=== PATIENT | female | born 1945 | race Caucasian/White ===

== ENCOUNTER 2018-03-02 22:06 | Emergency (ER) | payer MEDICARE, OTHER ==
[~2018-03-02] VITALS: Ht 165.1 cm; Wt 74.4 kg
[2018-03-02 22:13] VITALS: BP 156/82
[2018-03-02] MEDS ORDERED: LET SOLN TOPICAL 8 ML UDC TP ONE (22:15)
[2018-03-02] MEDS ORDERED: PHENYLEPHRINE 0.5% NASAL SPRAY 15 ML BOTTLE NS ONE (22:16)
[2018-03-02] MEDS ORDERED: LIDOCAINE VISCOUS 2% UD 15 ML UDC ONE (22:38)
[2018-03-02] MEDS ORDERED: SILVER NITRATE APPLICATOR 1 EA BOX ONE (22:38)
--- NOTE | 2018-03-02 22:58 | NUR ---
PT REFUSED IV AND BLOOD WORK. MADE AWARE
[2018-03-02] MEDS: IV NS 0.9% 500 ML BAG IV ONE (23:22)
[2018-03-02] MEDS: LET SOLN TOPICAL 8 ML UDC TP ONE (23:23)
[2018-03-02] MEDS: SILVER NITRATE APPLICATOR 1 EA BOX TOP ONE (23:23)
[2018-03-02] MEDS: PHENYLEPHRINE HCL NASAL SPRAY 15 ML BOTTLE NS ONE (23:27)
== END 2018-03-02 23:29 | disposition home or self-care (01) ==
LOC: ER 22:07
DX: R04.0 Epistaxis (principal); I10 Essential (primary) hypertension; K21.9 Gastro-esophageal reflux disease without esophagitis; E11.9 Type 2 diabetes mellitus without complications
CPT/HCPCS: 30901; 99284; A4606; Z7610

== ENCOUNTER 2019-11-04 23:55 | Inpatient (IN) | payer MEDICARE, OTHER ==
[~2019-11-04] VITALS: Ht 157.5 cm; Wt 91.6 kg
[2019-11-05] VITALS (7 sets, daily range): BP systolic 117–138; BP diastolic 50–61
--- NOTE | 2019-11-05 00:05 | NUR ---
AT BEDSIDE FOR EVAL.
[2019-11-05] MEDS ORDERED: NITROGLYCERIN 0.4 MG/TAB BOTTLE ONE (00:15)
[2019-11-05] MEDS ORDERED: ASPIRIN 325 MG TABLET ONE (00:16)
--- NOTE | 2019-11-05 00:20 | NUR ---
ROXY FROM HOME TO ER BED 3. AAOX4. NOT IN RESP DISTRESS. AMBULATORY. C/O MID STERNAL CHEST PAIN RADIATING TO UPPER BACK SHARP SINCE 1900. PT REPORTS THAT SHE FEELS SOB WITH O2 SAT 95% PLACED ON 02 VIA NC AT 2LPM. PT WAS GIVEN A SPRAY OF NITRO BY EMS BY UNRELIEVED. PT PLACED ON MONITOR. MD WAS AT BEDSIDE FOR EVAL. ORDERS RECEIVED, NOTED AND CARRIED OUT. IV LINE OBTAINED ON THE R AC 20G. BLOOD DRAWN AND GIVEN TO SILVICULTURIST AT BEDSIDE. EKG DONE BY EMT. WILL CONTINUE TO MONITOR
[2019-11-05 00:24] LABS: BASOPHILS % (AUTO) 0.7 % (0.0-2.0); EOSINOPHILS % (AUTO) 1.1 % (0.0-6.0); HEMATOCRIT 37 % (33-45); HEMOGLOBIN 12.2 g/dL (11.5-14.8); LYMPHOCYTES # (AUTO) 0.9 /CMM (0.8-4.8); LYMPHOCYTES % (AUTO) 24.9 % (20.0-44.0); MEAN CORPUSCULAR HGB CONC 33 g/dl (31.0-36.0); MEAN CORPUSCULAR VOLUME 90 fL (82-100); MONOCYTES # (AUTO) 0.3 /CMM (0.1-1.30); MONOCYTES % (AUTO) 9.9 % (2.0-12.0); NEUTROPHILS # (AUTO) 2.2 /CMM (1.8-8.9); NEUTROPHILS % (AUTO) 63.4 % (43.0-81.0); PLATELET COUNT (AUTO) 55 /CMM (150-450); RED BLOOD CELL COUNT(AUTO) 4.15 MIL/uL (4.0-5.2); WHITE BLOOD COUNT (AUTO) 3.5 K/uL (4.3-11.0)
[2019-11-05] MEDS ORDERED: NITROGLYCERIN 0.4 MG/TAB BOTTLE SL ONE (00:30)
[2019-11-05] MEDS ORDERED: ASPIRIN 325 MG TABLET PO ONE (00:30)
--- NOTE | 2019-11-05 00:34 | NUR ---
SPOKE TO PTS . Elida
--- NOTE | 2019-11-05 00:35 | NUR ---
XRAY AT BEDSIDE
[2019-11-05 00:40] LABS: CALCIUM, SERUM 9.4 mg/dL (8.5-10.1); CARBON DIOXIDE 28 mmol/L (21-32); CHLORIDE 104 mmol/L (98-107); CREATININE 0.7 mg/dL (0.6-1.3); GLUCOSE 139 mg/dL (74-106); POTASSIUM 4.1 mmol/L (3.5-5.1); SODIUM SERUM 142 mmol/L (136-145); UREA NITROGEN, BLOOD 11 mg/dL (7-18)
[2019-11-05 00:58] LABS: LYMPHOCYTES % (MANUAL) 22 % (16-48); MONOCYTES % (MANUAL) 7 % (0-11.0); NEUTROPHILS % (MANUAL) 71 (42-76)
[2019-11-05] MEDS ORDERED: ENOXAPARIN SODIUM 80 MG/0.8 ML DISP.SYRIN SQ ONE (01:00)
[2019-11-05] MEDS ORDERED: ENOXAPARIN SODIUM 30 MG/0.3 ML DISP.SYRIN ONE (01:11)
[2019-11-05] MEDS ORDERED: ENOXAPARIN SODIUM 60 MG/0.6 ML DISP.SYRIN SQ ONE (01:12)
[2019-11-05] MEDS ORDERED: CEFTRIAXONE 1GM BAG (ER ONLY) 1 GM/50 ML PIGGYBACK IV ONE (01:30)
[2019-11-05] MEDS ORDERED: AZITHROMYCIN 250 MG TABLET PO ONE (01:30)
[2019-11-05] MEDS ORDERED: CEFTRIAXONE 1GM BAG (ER ONLY) 50 ML IV ONE (01:58)
[2019-11-05] MEDS ORDERED: AZITHROMYCIN 250 MG TABLET ONE (01:58)
--- NOTE | 2019-11-05 02:23 | NUR ---
ZOE FROM TRANSLATION LINE TO ADVISE THAT THERE IS STILL NO [facility] DIRECTOR CAREER SERVICES AVAILABLE. WILL CALL BACK FOR UPDATE
--- NOTE | 2019-11-05 02:56 | NUR ---
REPORT GIVEN TO MATTHIEU MAYO FOR LIZZY. PT GOING TO 103 TELE
--- NOTE | 2019-11-05 04:18 | NUR ---
LAURA MALDONADO PAGED PER DEEDEE ARSHAD ORDER.
--- NOTE | 2019-11-05 04:53 | NUR ---
ER MD SPOKE TALKING TO LAURA MALDONADO REGARDING PT ADMISSION.
[2019-11-05] MEDS ORDERED: ONDANSETRON HCL/PF 4 MG/2 ML VIAL IVP PRN (05:00)
--- NOTE | 2019-11-05 05:05 | NUR ---
CARBON SEQUESTRATION PLANT ENGINEER NOTES RECEIVED PT VIA KAVIN. AOX4. NAD. C/O CHEST PAIN SAYS RADIATING TO HER BACK. CONTINENT OF BOWEL AND URINE. AMBULATORY. NO SKIN PROBLEMS. RAC SALINE LOCK 20G. ADMISSION RECORDING DONE. PT HAS EXPRESSED THE NEED TO REST AND SLEEP. BED LOCKED AND LOWEST POSITION. ALL SAFETY MEASURES IN PLACE. WILL CONT TO MONITOR.
--- NOTE | 2019-11-05 05:10 | NUR ---
PT TRANSPORTED PER [facility]S PROTOCOL.
[2019-11-05 06:09] LABS: ABG BASE EXCESS -0.6 mmol/L; ABG OXYGEN SATURATION 97.6 % (92.0-98.5); ABG PCO2 35.8 mmHg (35.0-45.0); ABG PH 7.431 (7.350-7.450); ABG PO2 108.4 mmHg (75.0-100.0); COHb 0.3 % (0.5-1.5); MetHb 0.6 % (0.0-1.5); O2Hb 96.7 % (94.0-97.0); SITE, ABG Left Radial; VENT MODE, BG 2 LNC
[2019-11-05 06:33] LABS: FERRITIN 62 ng/mL (8-388)
[2019-11-05 06:37] LABS: C-REACTIVE PROTEIN 1.8 mg/dL (0.0-0.9)
--- NOTE | 2019-11-05 06:48 | NUR ---
DEVELOPER ARCHITECT NOTES LAB CALLED WITH CRITICAL VALUE OF LACTIC ACID 2.8. LAURA BELLE FISH MACHINE FEEDER CONTACTED, NEW ORDER FOR 500ML NS 0.9% BOLUS RECEIVED. ORDER NOTED AND CARRIED OUT. WILL ENDORSE TO ONCOMING RN
[2019-11-05 06:54] LABS: ALANINE AMINOTRANSFERASE 19 U/L (12-78); ALBUMIN 3.8 g/dL (3.4-5.0); ALKALINE PHOSPHATASE 60 U/L (46-116); ASPARTATE AMINOTRANSFERASE 22 U/L (15-37); BILIRUBIN,DIRECT 0.2 mg/dL (0.0-0.2); BILIRUBIN,TOTAL 1.2 mg/dL (0.2-1.0); TOTAL PROTEIN, SERUM 7.2 g/dL (6.4-8.2)
[2019-11-05] MEDS ORDERED: IV NS 0.9% 500 ML IV ONE (07:00)
--- NOTE | 2019-11-05 07:30 | NUR ---
MS RN OPENING NOTES RECEIVED PATIENT IN BED, AWAKE, A/O X3. PATIENT ON OXYGEN THERAPY ON 2 LPM VIA NASAL CANNULA. PATIENT BREATHING EVEN AND UNLABORED, NO SIGNS OF SOB AT THIS TIME. RAC GAUGE # 20 PRESENT INTACT AND INFUSING BOLUS 0.9 NS. NO PAIN REPORTED BY PATIENT. SAFETY PRECAUTIONS IN PLACE; BED IN LOW POSITION AND LOCKED, RAILS UP X2, CALL LIGHT WITHIN REACH. WILL CONTINUE TO MONITOR PATIENT.
[2019-11-05] MEDS ORDERED: LIDO30AD10 TP (09:48)
[2019-11-05] MEDS ORDERED: ESOM40CA PO (09:48)
[2019-11-05] MEDS ORDERED: CYCL30DR EACHEYE (09:48)
[2019-11-05] MEDS ORDERED: CARB-93 PO (09:48)
[2019-11-05] MEDS ORDERED: GLIM2TAB31 PO (09:48)
[2019-11-05] MEDS ORDERED: ERGO500014 PO (09:48)
[2019-11-05] MEDS ORDERED: SITA1TAB2 PO (09:48)
[2019-11-05] MEDS ORDERED: LOSA50TA39 PO (09:48)
[2019-11-05] MEDS: PANTOPRAZOLE 40 MG TABLET.DR PO SCH (11:36)
[2019-11-05] MEDS ORDERED: IV NS 0.9% 250 ML IV ONE (12:04)
[2019-11-05] MEDS ORDERED: IOHEXOL-350 100 ML VIAL IV ONE (12:04)
[2019-11-05] MEDS ORDERED: CT SWABBABLE VALVE TRANS SET 1 EA INFUS.SET MC ONE (12:05)
[2019-11-05] MEDS: CARBIDOPA/LEVODOPA 25/100 MG 1 UDTAB PO SCH ×3 (14:15→21:03)
--- NOTE | 2019-11-05 18:48 | NUR ---
MS RN CLOSING NOTES PATIENT IN BED, ASLEEP, A/O X3. PATIENT ON OXYGEN THERAPY ON 2 LPM VIA NASAL CANNULA. PATIENT BREATHING EVEN AND UNLABORED, NO SIGNS OF SOB AT THIS TIME. RAC GAUGE # 20 PRESENT INTACT; FLUSHING WELL. NO PAIN REPORTED BY PATIENT. ALL NEEDS ATTENDED TO THROUGHOUT THE DAY. SAFETY PRECAUTIONS IN PLACE; BED IN LOW POSITION AND LOCKED, RAILS UP X2, CALL LIGHT WITHIN REACH. WILL ENDORSE TO GLYCERINE PLANT OPERATOR NURSE.
--- NOTE | 2019-11-05 19:30 | NUR ---
WELDER ASSISTANT NOTE: PATIENT RESTING IN BED, NO ACUTE DISTRESS NOTED. BREATHING EVEN AND UNLABORED, NO SOB NOTED. IV TO RAC AND LEFT HAND IN PLACE. ISOLATION PRECAUTIONS OBSERVED. BED LOCKED AND IN LOWEST POSITION, CALL LIGHT IN REACH. WILL CONTINUE TO MONITOR. Addendum: 11/05/19 at 2050 by OTILIO ARIAS RN TELE READING SR 78
[2019-11-06] VITALS (9 sets, daily range): BP systolic 107–126; BP diastolic 45–69
--- NOTE | 2019-11-06 03:05 | NUR ---
GINNER HELPER NOTE: PATIENT SLEEPING IN BED, NO ACUTE DISTRESS NOTED. BREATHING EVEN AND UNLABORED, NO SOB NOTED. IV TO RAC AND LEFT HAND IN PLACE. ISOLATION PRECAUTIONS OBSERVED. BED LOCKED AND IN LOWEST POSITION, CALL LIGHT IN REACH. WILL CONTINUE TO MONITOR.
--- NOTE | 2019-11-06 06:05 | NUR ---
TAIL RIPPER NOTE: PATIENT RESTING IN BED, NO ACUTE DISTRESS NOTED. BREATHING EVEN AND UNLABORED, NO SOB NOTED. IV TO RAC AND LEFT HAND IN PLACE. TELE READING SR 70-80'S. ISOLATION PRECAUTIONS OBSERVED. BED LOCKED AND IN LOWEST POSITION, CALL LIGHT IN REACH. WILL ENDORSE TO DAY NURSE TO CONTINUE WITH PLAN OF CARE.
[2019-11-06 07:14] LABS: BASOPHILS % (AUTO) 0.3 % (0.0-2.0); EOSINOPHILS % (AUTO) 1.1 % (0.0-6.0); HEMATOCRIT 32 % (33-45); HEMOGLOBIN 10.9 g/dL (11.5-14.8); LYMPHOCYTES # (AUTO) 1.5 /CMM (0.8-4.8); LYMPHOCYTES % (AUTO) 41.3 % (20.0-44.0); MEAN CORPUSCULAR HGB CONC 34 g/dl (31.0-36.0); MEAN CORPUSCULAR VOLUME 89 fL (82-100); MONOCYTES # (AUTO) 0.5 /CMM (0.1-1.30); MONOCYTES % (AUTO) 13.1 % (2.0-12.0); NEUTROPHILS # (AUTO) 1.6 /CMM (1.8-8.9); NEUTROPHILS % (AUTO) 44.2 % (43.0-81.0); WHITE BLOOD COUNT (AUTO) 3.6 K/uL (4.3-11.0)
[2019-11-06] MEDS ORDERED: Medication Not On Formulary EA (Esomeprazole Mag Trihydrate (Nexium) 40 MG) PO SCH (07:30)
--- NOTE | 2019-11-06 07:30 | NUR ---
INITIAL PATIENT RESTING IN BED, NO ACUTE DISTRESS NOTED. BREATHING EVEN AND UNLABORED, NO SOB NOTED. IV TO RAC AND LEFT HAND IN PLACE. TELE READING SR 91. ISOLATION PRECAUTIONS OBSERVED. BED LOCKED AND IN LOWEST POSITION, CALL LIGHT IN REACH. WILL CONTINUE TO MONITOR
[2019-11-06 07:35] LABS: THYROID STIMULATING HORMONE 1.465 uIU/mL (0.358-3.74)
[2019-11-06 07:43] LABS: ALBUMIN 3.3 g/dL (3.4-5.0); BILIRUBIN,TOTAL 1.7 mg/dL (0.2-1.0); CALCIUM, SERUM 8.7 mg/dL (8.5-10.1); CREATININE 0.6 mg/dL (0.6-1.3); POTASSIUM 3.5 mmol/L (3.5-5.1); TOTAL PROTEIN, SERUM 6.5 g/dL (6.4-8.2)
[2019-11-06 08:29] LABS: PLATELET COUNT (AUTO) 49 /CMM (150-450)
[2019-11-06] MEDS: CARBIDOPA/LEVODOPA 25/100 MG 1 UDTAB PO SCH ×4 (08:36→20:58)
[2019-11-06] MEDS: LOSARTAN POTASSIUM 50 MG TABLET PO SCH (08:36)
[2019-11-06] MEDS: LIDOCAINE 5% (PATCH) 1 EA PATCH TP SCH (08:36)
[2019-11-06] MEDS: AZITHROMYCIN 250 MG TABLET PO SCH (08:36)
[2019-11-06] MEDS: CEFTRIAXONE 1 G in IV D5W 50 ML IV SCH (08:36)
[2019-11-06] MEDS: PANTOPRAZOLE 40 MG TABLET.DR PO SCH (08:37)
[2019-11-06 10:44] LABS: EOSINOPHILS % (MANUAL) 1 % (0-4); LYMPHOCYTES % (MANUAL) 44 % (16-48); MONOCYTES % (MANUAL) 10 % (0-11.0); NEUTROPHILS % (MANUAL) 45 (42-76)
[2019-11-06] MEDS ORDERED: POLYVINYL ALCOHOL 15 ML BOTTLE EACHEYE PRN (15:00)
--- NOTE | 2019-11-06 19:40 | NUR ---
CLOSING PATIENT IN BED, ASLEEP, A/O X3. PATIENT ON OXYGEN THERAPY ON 2 LPM VIA NASAL CANNULA. PATIENT BREATHING EVEN AND UNLABORED, NO SIGNS OF SOB AT THIS TIME. RAC GAUGE # 20 PRESENT INTACT; FLUSHING WELL. NO PAIN REPORTED BY PATIENT. ALL NEEDS ATTENDED TO THROUGHOUT THE DAY. SAFETY PRECAUTIONS IN PLACE; BED IN LOW POSITION AND LOCKED, RAILS UP X2, CALL LIGHT WITHIN REACH. WILL ENDORSE TO WELDING PRODUCTION SUPERVISOR NURSE.
--- NOTE | 2019-11-06 19:54 | NUR ---
RN NOTES PATIENT RESTING IN BED, NO ACUTE DISTRESS NOTED. BREATHING EVEN AND UNLABORED, NO SOB NOTED. IV TO RAC AND LEFT HAND IN PLACE. TELE READING SR 80'S TO 90's. ISOLATION PRECAUTIONS MAINTAINED, SAFETY MEASURES IN PLACE. BED LOCKED AND IN LOWEST POSITION, CALL LIGHT WITH IN REACH. WILL CONTINUE TO MONITOR ACCORDINGLY.
[2019-11-07] VITALS (9 sets, daily range): BP systolic 110–147; BP diastolic 45–75
--- NOTE | 2019-11-07 06:26 | NUR ---
RN NOTES ALL NEEDS ATTENDED AND MET, ABLE TO REST AND SLEPT AT INTERVALS, NO DISTRESS THROUGHOUT THE SHIFT, AFEBRILE TEMP 97.5/AXILLA. SAFETY MEASURES IN PLACE, ISOLATION PRECAUTION EMPHASIZE, CALL LIGHT WITH IN EASY REACH, WILL ENDORSE TO AM NURSE FOR CONTINUITY OF CARE.
[2019-11-07 06:59] LABS: BASOPHILS % (AUTO) 0.4 % (0.0-2.0); EOSINOPHILS % (AUTO) 2.3 % (0.0-6.0); HEMATOCRIT 34 % (33-45); HEMOGLOBIN 11.5 g/dL (11.5-14.8); LYMPHOCYTES # (AUTO) 1.2 /CMM (0.8-4.8); LYMPHOCYTES % (AUTO) 37.8 % (20.0-44.0); MEAN CORPUSCULAR HGB CONC 33 g/dl (31.0-36.0); MEAN CORPUSCULAR VOLUME 89 fL (82-100); MONOCYTES # (AUTO) 0.3 /CMM (0.1-1.30); MONOCYTES % (AUTO) 9.5 % (2.0-12.0); NEUTROPHILS # (AUTO) 1.6 /CMM (1.8-8.9); PLATELET COUNT (AUTO) 53 /CMM (150-450); RED BLOOD CELL COUNT(AUTO) 3.88 MIL/uL (4.0-5.2); WHITE BLOOD COUNT (AUTO) 3.3 K/uL (4.3-11.0)
[2019-11-07 07:25] LABS: CREATININE 0.6 mg/dL (0.6-1.3); MAGNESIUM 1.8 mg/dL (1.8-2.4); PHOSPHORUS 3.9 mg/dL (2.5-4.9); POTASSIUM 3.6 mmol/L (3.5-5.1)
[2019-11-07] MEDS: PANTOPRAZOLE 40 MG TABLET.DR PO SCH (07:40)
--- NOTE | 2019-11-07 08:00 | NUR ---
RAILWAY STATION MANAGER OPENING NOTES RECEIVED PT ON BED, [place] AND TURKS AND [place] ISLANDER SPEAKING, A/OX4, RESPONSIVE TO ALL STIMULI. RESPIRATION UNLABORED, ON O2 AT 2LPM VIA N/C, PROPER BREATHING TECHNIQUE INSTRUCTED AND RE-POSITIONING/TURNING OFTEN TOLERATED. SKIN WARM TO TOUCH AND DRY. DENIES PAIN AND DISCOMFORT. ABD SOFT AND NON DISTENDED WITH ACTIVE BOWEL SOUNDS. TELE MONITOR SHOWS SR 71. IV SITE AT RIGHT AC #20 AND LEFT HAND #20, PATENT IN FLUSHING, SITE HAS NO S/SX ON INFILTRATION NOTED. COVID TESTING PENDING. ALL CONCERNS ATTENDED. KEEP IN DROPLET ISOLATION ROOM. PT FULL CODE. CALL LIGHT WITHIN REACH. WILL CONTINUE TO MONITOR CARE.
[2019-11-07 08:38] LABS: EOSINOPHILS % (MANUAL) 3 % (0-4); LYMPHOCYTES % (MANUAL) 44 % (16-48); MONOCYTES % (MANUAL) 8 % (0-11.0); NEUTROPHILS % (MANUAL) 45 (42-76)
[2019-11-07] MEDS: LOSARTAN POTASSIUM 50 MG TABLET PO SCH (08:43)
[2019-11-07] MEDS: CEFTRIAXONE 1 G in IV D5W 50 ML IV SCH (08:43)
[2019-11-07] MEDS: LIDOCAINE 5% (PATCH) 1 EA PATCH TP SCH (08:43)
[2019-11-07] MEDS: AZITHROMYCIN 250 MG TABLET PO SCH (08:44)
[2019-11-07] MEDS: CARBIDOPA/LEVODOPA 25/100 MG 1 UDTAB PO SCH ×4 (08:44→21:16)
--- NOTE | 2019-11-07 10:18 | NUR ---
MANAGEMENT ANALYST NOTES ASSISTED PT TO THE BATHROOM, BM X1. CHANGES GOWN AND LINENS. NO PRESENCE OF ACUTE DISTRESS NOTED DURING THE ACTIVITY. NEEDS SUPERVISION WITH ADL. CONTINUE TO MONITOR
--- NOTE | 2019-11-07 14:52 | NUR ---
DIRECTOR [facility] NOTES PT SLEEPING, ON O2 AT 2LPM, RESPIRATION EVEN AND UNLABORED. CONTINUE TO MONITOR CARE. CONTINUE TO PRESENT PPE PRECAUTION
--- NOTE | 2019-11-07 18:35 | NUR ---
AIRBORNE OPERATIONS SUPERINTENDENT CLOSING NOTES PT A/OX4, DENIES SOB, ACUTE RESPIRATORY DISTRESS, ON O2 AT 2LPM PRN VIA N/C, TOLERATING ROOM AIR SATING >92%, PT ABLE TO PERFORM BREATHING TECHNIQUE PROPERLY, AMBULATING AND TURNING TOLERATED. DENIES PAIN AND DISCOMFORT. ABD SOFT AND NON DISTENDED, HAD BMX1 TODAY. SKIN WARM TO TOUCH, NO NEW OPEN SKIN BREAKDOWN. IV SITE AT RIGHT AC #20, LEFT HAND #20 NO S/SX OF INFILTRATION. TELE MONITOR SHOWS SR 67. COVID-19 TESTING PENDING. ALL CONCERNS ATTENDED. CALL LIGHT WITHIN REACHED. BED IN LOW LOCKED POSITION, SR X2 UP FOR SAFETY. ON CONTACT/DROPLET ISOLATION. ENDORSED PT CARE TO NEXT SHIFT.
--- NOTE | 2019-11-07 19:15 | NUR ---
RN OPENING NOTES RECEIVED PATIENT AWAKE IN BED. A/OX3. NO SIGNS OF DISTRESS OR DISCOMFORT. BREATHING EVEN AND UNLABORED. ON 2LPM O2 VIA NC. ON TELE MONITOR WITH SR 60 NOTED. IV ACCESS IN RAC AND L HAND, PATENT AND INTACT, NO SIGNS OF REDNESS OR INFILTRATION. BED IN LOW LOCKED POSITION WITH SIDE RAILS X2. CALL LIGHT WITHIN REACH. WILL CONTINUE TO MONITOR.
[2019-11-08] VITALS: BP 131/65
--- NOTE | 2019-11-08 03:16 | NUR ---
PEDIATRIC NEUROPSYCHOLOGIST CONTINUITY OF CARE NOTES RECEIVED PATIENT TRANSFER FROM BUTCH , AWAKE ALERT AND ORIENTED X4, RESPIRATIONS EVEN AND UNLABORED WITH EQUAL RISE AND FALL OF CHEST, DENIES ANY PAIN OR DISCOMFORT AT THIS TIME, ON RA AT THIS TIME, 02 WNL 94%.RIGHT AC #20G INTACT AND PATENT, NO REDNESS, NO INFILTRATION PRESENT, ORIENTED TO STAFF AND CALL LIGHT AND KEPT WITHIN REACH, BELONGINGS REVIEWED, SKIN INTACT. ALL NEEDS ATTENDED AT THIS TIME, WILL CONTINUE TO MONITOR.PLACED ON CONCRETE STONE FINISHER SR 68
--- NOTE | 2019-11-08 03:17 | NUR ---
RN CLOSING NOTES PATIENT TRANSFERRED TO [facility] VIA ACLS PROTOCOL IN STABLE CONDITION. REPORT GIVEN TO ABHISHEK SOMMERS FOR LIZZY.
[2019-11-08 04:00] VITALS: BP 133/67
[2019-11-08 04:16] VITALS: BP 133/67
--- NOTE | 2019-11-08 06:14 | NUR ---
IMPREGNATOR ELECTROLYTIC CAPACITORS CLOSING NOTES PATIENT IN ROOM, AWAKE ALERT AND ORIENTED X4, RESPIRATIONS EVEN AND UNLABORED WITH EQUAL RISE AND FALL OF CHEST, DENIES ANY PAIN OR DISCOMFORT AT THIS TIME, ON RA AT THIS TIME, 02 WNL 94%.RIGHT AC #20G INTACT AND PATENT, NO REDNESS, NO INFILTRATION PRESENT, FLUIDS OFFERED CALL LIGHT KEPT WITHIN REACH, ALL NEEDS ATTENDED AT THIS TIME, WILL CONTINUE TO MONITOR.PLACED ON COACH WIRER SR 65. WILL ENDORSE TO NEXT SHIFT.
--- NOTE | 2019-11-08 07:43 | NUR ---
RN OPENING NOTES RECEIVED PATIENT AWAKE, ALERT AND ORIENTED X4. PATIENT IS AMBULATORY WITH STEADY GAIT. DENIES PAIN. BREATHING EVEN AND UNLABORED WITH EQUAL RISE AND FALL OF CHEST. 20G IN RIGHT AC PATENT AND INTACT. NEEDS ATTENDED TO. POSSIBLE D/C TODAY. WILL CONTINUE TO MONITOR.
[2019-11-08 08:00] VITALS: BP 119/64
[2019-11-08] MEDS: CARBIDOPA/LEVODOPA 25/100 MG 1 UDTAB PO SCH ×2 (10:17→12:40)
[2019-11-08] MEDS: AZITHROMYCIN 250 MG TABLET PO SCH (10:17)
[2019-11-08] MEDS: LIDOCAINE 5% (PATCH) 1 EA PATCH TP SCH (10:17)
[2019-11-08] MEDS: PANTOPRAZOLE 40 MG TABLET.DR PO SCH (10:17)
[2019-11-08] MEDS: LOSARTAN POTASSIUM 50 MG TABLET PO SCH (10:17)
[2019-11-08 12:00] VITALS: BP 128/70
[2019-11-08] MEDS: CEFTRIAXONE 1 G in IV D5W 50 ML IV SCH (12:27)
--- NOTE | 2019-11-08 14:30 | NUR ---
Patient cleared for d/c to home by MD. Patient awake a/o x 4, breathing unlabored and even on room air tolerating well, afebrile , VS are stable and within baseline. All needs attended prior discharge. Patient has no skin issues. D/C instructions and teaching provided to the patient and patient verbalized understanding ;patient will f/u with Dr. Vogt in two weeks .IV lines removed and ID wrist band removed. Patient sighed valuable form and all belongings with the patient. Patient safely transferred to [facility] by a nurse and picked up by .
[2019-11-10] MEDS ORDERED: ERGOCALCIFEROL (VITAMIN D 2) 50,000 UNIT CAPSULE PO SCH (09:00)
== END 2019-11-08 14:30 | disposition home or self-care (01) | DRG 194 ==
LOC: ER 23:56 → TELE1 11-05 02:35 → TELE 11-08 03:07
PROVIDERS: ADMIT Internal Medicine
DX: J15.9 Unspecified bacterial pneumonia (principal); E87.2 Acidosis; N18.4 Chronic kidney disease, stage 4 (severe); N39.0 Urinary tract infection, site not specified; D61.818 Other pancytopenia; Z16.12 Extended spectrum beta lactamase (ESBL) resistance; J98.11 Atelectasis; E11.9 Type 2 diabetes mellitus without complications; K21.9 Gastro-esophageal reflux disease without esophagitis; D69.6 Thrombocytopenia, unspecified; G20 Parkinson's disease; D63.1 Anemia in chronic kidney disease; E11.22 Type 2 diabetes mellitus with diabetic chronic kidney disease; I13.10 Hypertensive heart and chronic kidney disease without heart failure, with stage 1 through stage 4 chronic kidney disease, or unspecified chronic kidney disease; E66.9 Obesity, unspecified; Z79.84 Long term (current) use of oral hypoglycemic drugs; Z79.899 Other long term (current) drug therapy; M77.9 Enthesopathy, unspecified
CPT/HCPCS: 36415; 36600; 71045-TC; 71046; 80048-TC; 80053-TC; 80061-TC; 80076-TC; 82728-TC; 82803-TC; 83605-TC; 83615-TC; 83735-TC; 83880; 84100-TC; 84443-TC; 84484-TC; 85025-TC; 85378-TC; 86140-TC; 87040-TC; 87081-TC; 93307-TC; G0378; J0696; J1650; J7040; J7050; J7060; Q9967